=== PATIENT | female | born 1985 | race Caucasian/White ===

== ENCOUNTER 2018-05-30 11:30 | Emergency (ER) | payer OTHER ==
[~2018-05-30] VITALS: Ht 165.1 cm; Wt 84.4 kg
[2018-05-30 11:35] VITALS: BP 109/66
--- NOTE | 2018-05-30 11:35 | NUR ---
PT. CAME INTO THE ED DUE TO L ARM PAIN X 4 DAYS . PT. STATES " 4 DAYS AGO I WOKE UP WITH L ARM PAIN AND IT HAS BEEN GETTING WORSE SINCE YESTERDAY". 9/10 SHARP PAIN FROM SHOULDER DOWN TO HAND THAT HAPPPENS UPON MOVEMENT. NO DEFORMITY NOTED, PT. DENIES ANY FALL OR INJURY. CAP REFILL LESS THAN 3 SEC. SKIN WARM AND DRY TO TOUCH. RR EVEN AND UNLABORED. L ARM STRENGTH 2+ AND R ARM STRENGTH 3+. DENIES ANY N/V/D. ER MD NOTIFIED. SAFETY PRECAUTIONS IMPLEMENTED. WILL CONTINUE TO MONITOR.
--- NOTE | 2018-05-30 11:54 | NUR ---
ER MD AT BEDSIDE , EVALUATING PATIENT
[2018-05-30] MEDS ORDERED: KETOROLAC 60 MG/2 ML VIAL IM ONE (12:05)
[2018-05-30] MEDS ORDERED: DEXAMETHASONE 10 MG/ML VIAL IM ONE (12:05)
--- NOTE | 2018-05-30 12:39 | NUR ---
PT. RESTING COMFORTABLY IN BED, RR EVEN AND UNLABORED. MOTHER AT BEDSIDE. WILL CONTINUE TO MONITOR.
[2018-05-30 12:43] LABS: BARBITURATE, URINE NEG. ng/ml (NEG <=200); BENZODIAZEPINE, URINE NEG. ng/mL (NEG <=200); CANNABINOID, URINE NEG. ng/mL (NEG <=50); COCAINE, URINE NEG. ng/mL (NEG <=300); OPIATE, URINE NEG. ng/mL (NEG <=2000); PHENCYCLIDINE SCREEN,URINE NEG. ng/mL (NEG <=25)
[2018-05-30 13:25] VITALS: BP 100/55
--- NOTE | 2018-05-30 13:25 | NUR ---
Patient discharged with v/s stable. Written and verbal after care instructions given and explained. Patient alert, oriented and verbalized understanding of instructions. Ambulatory with steady gait. All questions addressed prior to discharge. ID band removed. Patient advised to follow up with PMD. Rx of voltaren xr given. Patient educated on indication of medication including possible reaction and side effects. Opportunity to ask questions provided and answered.
== END 2018-05-30 13:25 | disposition home or self-care (01) ==
LOC: MED 11:30
DX: M25.542 Pain in joints of left hand (principal); R20.0 Anesthesia of skin; R53.1 Weakness
CPT/HCPCS: 80305; 81002; 81025; 96372; 99283; J1100; J1885